=== PATIENT | female | born 1975 | race Caucasian/White ===

== ENCOUNTER 2018-12-15 08:05 | Emergency (ER) | payer MEDICAID, SELFPAY ==
[2018-12-15 08:07] VITALS: BP 114/79; PULSE 89; RESP 16; TEMP 36.6; O2SAT 100; BMI 22.5
--- NOTE | 2018-12-15 08:51 | ED.DCSUM_ITS ---
- ER Visit Summary Date of Service: 12/15/18 Chief Complaint: [Back pain] History of Present Illness: The patient is a 43 F [presents to the emergency department complaint of pain in her back that started yesterday afternoon. Patient states that she picked up a heavy garbage bag and had sudden onset of pain in her low back and into her hips. Patient states that at times intermittently her toes have been numb and tingly. She denies any pain radiating down the legs. She denies weakness in the legs. She denies any change in bowel or bladder function. Patient denies urinary symptoms.] Physical Examination: [HEENT-PERRLA, EOMI. Cranial nerves II through XII grossly intact. TMs clear. Mucous membranes moist. No adenopathy. Cardiovascular-regular rate and rhythm without murmur or ectopy Lungs-clear to auscultation, chest wall stable without crepitus or subcu emphysema Abdomen-normoactive bowel sounds, soft, nontender, no rebound or rigidity, no peritoneal signs. Back exam-patient has mild diffuse tenderness palpation over lumbar paraspinal musculature and spasm. Patient has decreased range of motion and has a hard time sitting up in bed secondary to pain. She has negative straight leg raises. Deep tendon reflexes are plus 2 out of 4 bilaterally at the patella and Achilles. Patient has normal L5 extension bilaterally. Patient has normal sensation to light touch. Extremities-intact ?4, normal range of motion, normal pulses, atraumatic] Test Results: [None indicated] Emergency Department Course and Treatment: Patient was medicated with Dilaudid, Toradol, Valium, and Zofran. [] Treatment Plan: [Patient will be given a prescription for [place], Flexeril, and naproxen. Patient will be referred to primary care physician workers compensation manager for no doc for follow-up. Patient advised to return if worsening pain, weakness in extremities, change in bowel or bladder function, or condition should worsen anyway. Patient has no evidence for cauda equina.] Disposition: [Discharged home in stable condition] Impression: [Lumbosacral strain] This note was generated with [employer] dictation software. It may contain incorrect words, spelling, and punctuation that were not noted in review of the chart prior to signing ED Disposition - Plan for ED Patient: Referrals: Care Physician,No Primary [Primary Care Provider] -
--- NOTE | 2018-12-15 08:53 | ED.DEP ---
ED Disposition - Plan for ED Patient: Instructions: ED Sprain Strain Lumbar Prescriptions: Hydrocodone Bitart/Apap 5-325 [[place] 5MG-325MG] 1 tab PO Q4H PRN PRN 2 Days #20 tab PRN Reason: Pain Naproxen [Naprosyn] 500 mg PO BID PRN #20 tab Cyclobenzaprine [Flexeril] 10 mg PO TID PRN #20 tab PRN Reason: Muscle Spasm Referrals: Care Physician,No Primary [Primary Care Provider] - Janay Lam MD [STAFF PHYSICIAN] - 5-7 Days
[2018-12-15] MEDS: diazePAM 5 MG Tablet PO (09:18)
[2018-12-15] MEDS: Ketorolac 60 MG/2 ML Vial IM (09:18)
[2018-12-15] MEDS: Ondansetron 4 MG/2 ML Vial IM (09:19)
[2018-12-15] MEDS: HYDROmorphone 1 MG/ML Syringe IM (09:19)
[2018-12-15 09:52] VITALS: BP 113/76
== END 2018-12-15 09:53 | disposition home or self-care (01) ==
PROVIDERS: Emergency Provider Emergency Medicine
DX: S39.012A Strain of muscle, fascia and tendon of lower back, initial encounter (principal); R20.0 Anesthesia of skin; R20.2 Paresthesia of skin; X50.0XXA Overexertion from strenuous movement or load, initial encounter; Y93.9 Activity, unspecified; Y92.9 Unspecified place or not applicable
CPT/HCPCS: 96372; 99283; J2405

== ENCOUNTER 2021-01-16 14:53 | Outpatient (RCR) | payer MEDICAID, SELFPAY ==
[2021-01-16] MEDS: COVID-19 VACC, MRNA(PFIZER)/PF 30 MCG/0.3 ML SYRINGE IM (14:53)
[2021-02-06] MEDS: COVID-19 VACC, MRNA(PFIZER)/PF 30 MCG/0.3 ML SYRINGE IM (08:35)
== END 2021-01-16 23:59 ==
LOC: IMMUN 14:53
PROVIDERS: Referring Provider Family Medicine; Visit Provider Family Medicine
DX: Z23 Encounter for immunization (principal)
CPT/HCPCS: 0001A; 0002A; 91300